=== PATIENT | female | born 1990 | race Caucasian/White ===

== ENCOUNTER 2019-01-03 15:50 | Emergency (ER) | payer SELFPAY ==
[~2019-01-03] VITALS: Ht 162.6 cm; Wt 104.3 kg
[2019-01-03 15:55] VITALS: BP 136/87
--- NOTE | 2019-01-03 15:58 | NUR ---
PT TO ER BED 3
--- NOTE | 2019-01-03 16:13 | NUR ---
PT C/O INTERMITTENT EPIGASTRIC PAIN, NAUSEA WITH VOMITING X 1 TIME, LOWER GRADE OF FEVER, CHILLS, AND SWEATINGS SINCE THIS MORNING AT 3 AM. PT ALSO STATES HAVING CONSTIPATION FOR 3 DAYS AND ABDOMINAL CRAMPING WHILE URINATING FOR ONE WEEK. DENIES DIARRHEA; SKIN IS PINK/WARM/DRY; AAOX4 WITH EVEN AND STEADY GAIT; PT DENIES ANY FEVER, CP, SOB, OR COUGH AT THIS TIME; PATIENT STATES PEIGASTRIC PAIN OF 5/10 AT THIS TIME; VSS; PATIENT POSITIONED FOR COMFORT; HOB ELEVATED; BEDRAILS UP X1; BED DOWN. ER MD MADE AWARE OF PT STATUS.
[2019-01-03] MEDS ORDERED: ONDANSETRON 4 MG ODT PO ONE (16:20)
[2019-01-03] MEDS ORDERED: DICYCLOMINE HCL LIQUID 20 MG, ALUMINUM HYD/MAG/SIMETHICONE 30 ML, LIDOCAINE VISCOUS 2% ... PO ONE ×3 (16:20)
[2019-01-03 16:43] LABS: BASOPHILS % (AUTO) 0.2 % (0.0-2.0); EOSINOPHILS # (AUTO) 0.1 K/uL (0-0.4); EOSINOPHILS % (AUTO) 0.5 % (0.0-4.0); HEMATOCRIT 40.9 % (36-48); HEMOGLOBIN 13.5 g/dL (12.0-16.0); LYMPHOCYTES # (AUTO) 0.7 K/uL (2.5-16.5); LYMPHOCYTES % (AUTO) 6.1 % (20.5-51.1); MEAN CORPUSCULAR HEMOGLOBIN 29 pg (27-31); MEAN CORPUSCULAR HGB CONC 33 g/dL (33-37); MEAN CORPUSCULAR VOLUME 86.4 fL (80-94); MONOCYTES # (AUTO) 0.3 K/uL (0.8-1.0); MONOCYTES % (AUTO) 2.8 % (1.7-9.3); NEUTROPHILS # (AUTO) 10.6 K/uL (1.8-7.7); NEUTROPHILS % (AUTO) 90.4 % (42.2-75.2); PLATELET COUNT (AUTO) 238 K/uL (140-450); RED BLOOD CELL COUNT(AUTO) 4.73 MIL/uL (4.20-5.40); RED CELL DISTRIBUTION WIDTH 13.2 % (11.6-13.7); WHITE BLOOD COUNT (AUTO) 11.7 K/uL (4.8-10.8)
[2019-01-03 16:47] LABS: APPEARANCE,URINE HAZY (CLEAR); BILIRUBIN,URINE NEGATIVE (NEGATIVE); BLOOD, URINE NEGATIVE (NEGATIVE); COLOR,URINE YELLOW (YELLOW); LEUKOCYTE ESTERASE ,URINE 1+ (NEGATIVE); NITRITE, URINE NEGATIVE (NEGATIVE); PH,URINE 8.5 (5.0-9.0); UGLUCOSE NEGATIVE (NEGATIVE)
[2019-01-03 16:54] LABS: RBC,URINE 0-5 /HPF (0-5); WBC,URINE TOO MANY TO COUNT /HPF (0-5)
[2019-01-03 17:01] LABS: ALBUMIN 3.7 g/dL (3.4-5.0); ANION GAP 13.2 (8-16); CREATININE 0.8 mg/dL (0.6-1.3); POTASSIUM 4.2 mmol/L (3.5-5.1); TOTAL BILIRUBIN 0.7 mg/dL (0.0-1.0)
[2019-01-03 17:26] VITALS: BP 106/62
--- NOTE | 2019-01-03 17:27 | NUR ---
Patient discharged with v/s stable. Written and verbal after care instructions given and explained. Patient alert, oriented and verbalized understanding of instructions. Ambulatory with steady gait. All questions addressed prior to discharge. ID band removed. Patient advised to follow up with PMD. Rx of Nitrofurantoin, Miralax, Phenazopyridine, Tylenol and Bentyl given. Patient educated on indication of medication including possible reaction and side effects. Opportunity to ask questions provided and answered.
== END 2019-01-03 17:27 | disposition home or self-care (01) ==
LOC: MED 15:50
DX: N39.0 Urinary tract infection, site not specified (principal)
CPT/HCPCS: 36415; 80053; 81001; 81025; 83690; 85025; 87086; 87186; 99283; Q0162

== ENCOUNTER 2019-12-30 02:43 | Emergency (ER) | payer SELFPAY ==
[~2019-12-30] VITALS: Ht 160 cm; Wt 104.3 kg
[2019-12-30 02:50] VITALS: BP 120/73
--- NOTE | 2019-12-30 02:53 | NUR ---
PT AMBULATED TO BED 07 WITH STEADY GAIT.
--- NOTE | 2019-12-30 03:00 | NUR ---
Dr. Boykin examining patient.
--- NOTE | 2019-12-30 03:00 | NUR ---
29 YEAR OLD FEMALE COMPLAINS OF UPPER EPIGASTRIC PAIN X 30MINS. PT STATES THAT THE PAIN IS STARTING TO GO AWAY BY ITSELF, BUT IT WAS 10/10 AND RADIATED TO BACK. PT STATES SHE TOOK 3 ASPIRINS, DOES NOT KNOW DOSE. PT DENIES N/V/D OR BLOOD IN STOOL OR PROBLEMS WITH URINATION/DEFECATION. PT AOX4, BREATHING EVEN AND UNLABORED, SKIN WARM AND DRY. BED IN LOWEST POSITION, LOCKED, BED RAIL UPX1. PMH - DENIES ALLERGIES - NKA
[2019-12-30] MEDS ORDERED: PANTOPRAZOLE 40 MG INJ VIAL IVP ONE (03:05)
[2019-12-30 03:35] VITALS: BP 116/55
--- NOTE | 2019-12-30 03:35 | NUR ---
Patient discharged with v/s stable. Written and verbal after care instructions about gastroesophageal reflex disease and its diet given and explained. Patient alert, oriented and verbalized understanding of instructions. Ambulatory with steady gait. All questions addressed prior to discharge. ID band removed. Patient advised to follow up with PMD. Rx of Protonix given. Patient educated on indication of medication including possible reaction and side effects. Opportunity to ask questions provided and answered.
== END 2019-12-30 03:35 | disposition home or self-care (01) ==
LOC: MED 02:43
DX: K29.70 Gastritis, unspecified, without bleeding (principal)
CPT/HCPCS: 81002; 81025; 96374; 99283; C9113

== ENCOUNTER 2021-12-03 06:10 | Emergency (ER) | payer OTHER ==
[~2021-12-03] VITALS: Ht 160 cm; Wt 97.1 kg
[2021-12-03 06:13] VITALS: BP 132/70
[2021-12-03] MEDS ORDERED: ACETAMINOPHEN EXTRA STRENGTH 500 MG TAB PO ONE (06:20)
[2021-12-03] MEDS ORDERED: FAMOTIDINE 20 MG TAB PO ONE (06:20)
[2021-12-03] MEDS ORDERED: ONDANSETRON 4 MG ODT PO ONE (06:20)
--- NOTE | 2021-12-03 06:20 | NUR ---
MD TORRES ASSESSING PATIENT
--- NOTE | 2021-12-03 06:20 | NUR ---
Patient ambulated to bed 3.
--- NOTE | 2021-12-03 06:22 | NUR ---
PATIENT AMBULATED TO THE AND BACK TO BED 3
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
[2021-12-03 06:44] LABS: BASOPHILS % (AUTO) 0.5 % (0.0-2.0); EOSINOPHILS # (AUTO) 0.2 K/uL (0-0.4); EOSINOPHILS % (AUTO) 1.6 % (0.0-4.0); HEMATOCRIT 41.3 % (36-48); HEMOGLOBIN 14.1 g/dL (12.0-16.0); LYMPHOCYTES # (AUTO) 2.2 K/uL (2.5-16.5); LYMPHOCYTES % (AUTO) 22.8 % (20.5-51.1); MEAN CORPUSCULAR HEMOGLOBIN 30 pg (27-31); MEAN CORPUSCULAR HGB CONC 34 g/dL (33-37); MEAN CORPUSCULAR VOLUME 88.1 fL (80-94); MONOCYTES # (AUTO) 0.5 K/uL (0.8-1.0); NEUTROPHILS # (AUTO) 6.8 K/uL (1.8-7.7); NEUTROPHILS % (AUTO) 70.1 % (42.2-75.2); PLATELET COUNT (AUTO) 234 K/uL (140-450); RED BLOOD CELL COUNT(AUTO) 4.69 MIL/uL (4.20-5.40); RED CELL DISTRIBUTION WIDTH 13.5 % (11.6-13.7); WHITE BLOOD COUNT (AUTO) 9.6 K/uL (4.8-10.8)
--- NOTE | 2021-12-03 06:45 | NUR ---
US AT BEDSIDE
[2021-12-03 06:49] LABS: APPEARANCE,URINE CLEAR (CLEAR); BILIRUBIN,URINE 1+ (NEGATIVE); BLOOD, URINE 3+ (NEGATIVE); COLOR,URINE ORANGE (YELLOW); LEUKOCYTE ESTERASE ,URINE 1+ (NEGATIVE); NITRITE, URINE NEGATIVE (NEGATIVE); PH,URINE 6.5 (5.0-9.0); UGLUCOSE NEGATIVE (NEGATIVE)
[2021-12-03 06:55] LABS: ANION GAP 9.6 (8-16); CARBON DIOXIDE 26.3 mmol/L (21-32); CREATININE 0.8 mg/dL (0.6-1.3); POTASSIUM 3.9 mmol/L (3.5-5.1); TOTAL BILIRUBIN 0.7 mg/dL (0.0-1.0)
[2021-12-03 07:13] LABS: OTHER CASTS, URINE None Seen /LPF (None Seen)
--- NOTE | 2021-12-03 07:25 | NUR ---
Pt report given to KASEY Duff. Transfer of care at this time.
--- NOTE | 2021-12-03 07:29 | NUR ---
RECEIVED REPORT FROM CELESTINO LUX. ASSUMED CARE AT THIS TIME.
--- NOTE | 2021-12-03 08:15 | NUR ---
PATIENT APPEARS TO BE RESTING IN BED. REPORTS ABDOMINAL PAIN HAS RESOLVED, ALL NEEDS MET AT THIS TIME, WILL CONTINUE TO MONITOR.
[2021-12-03] MEDS ORDERED: ACET-10509 PO (09:45)
[2021-12-03] MEDS ORDERED: CEPH-588 PO (09:45)
[2021-12-03 09:56] VITALS: BP 124/65
--- NOTE | 2021-12-03 09:56 | NUR ---
Patient discharged with v/s stable. Written and verbal after care instructions ABOUT THREATENED MISCARRIAGE, GASTRITIS AND UTI given and explained. Patient alert, oriented and verbalized understanding of instructions. Ambulatory with steady gait. All questions addressed prior to discharge. ID band removed. Patient advised to follow up with PMD. Rx of KEFLEX AND TYLENOL EXTRA STRENGTH given. Patient educated on indication of medication including possible reaction and side effects. Opportunity to ask questions provided and answered.
--- NOTE | 2021-12-05 18:48 | NUR ---
LATE ENTRY. RECEIVED POSITIVE URINE CULTURE RESULT. REVIEWED BY DR TRAN. PT PRESENT IN ER AT THIS TIME, ERMD MADE AWARE. TREATMENT APPROPRIATE. LOG IN BINDER
== END 2021-12-03 09:56 | disposition home or self-care (01) ==
LOC: MED 06:10
DX: O20.0 Threatened abortion (principal); O23.91 Unspecified genitourinary tract infection in pregnancy, first trimester; R82.71 Bacteriuria; Z3A.01 Less than 8 weeks gestation of pregnancy; Z90.49 Acquired absence of other specified parts of digestive tract; Z79.2 Long term (current) use of antibiotics; Z79.899 Other long term (current) drug therapy
CPT/HCPCS: 36415; 76801; 80053; 81001; 81025; 83690; 84702; 85025; 86900; 86901; 87086; 99284; Q0092; Q0162

== ENCOUNTER 2021-12-05 17:22 | Emergency (ER) | payer OTHER ==
[~2021-12-05] VITALS: Ht 160 cm; Wt 95.7 kg
[~2021-12-05 17:22] MED LIST: ACET-10509 PO; CEPH-588 PO
[2021-12-05 17:29] VITALS: BP 122/80
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
--- NOTE | 2021-12-05 17:59 | NUR ---
URINE WALKED TO LAB. HANDED TO JAKE
--- NOTE | 2021-12-05 18:02 | NUR ---
DR HICKMAN AT BEDSIDE FOR EVALUATION
[2021-12-05 18:04] LABS: APPEARANCE,URINE SL CLOUDY (CLEAR); BILIRUBIN,URINE NEGATIVE (NEGATIVE); BLOOD, URINE 3+ (NEGATIVE); COLOR,URINE RED (YELLOW); LEUKOCYTE ESTERASE ,URINE 1+ (NEGATIVE); NITRITE, URINE NEGATIVE (NEGATIVE); PH,URINE 5.5 (5.0-9.0); UGLUCOSE NEGATIVE (NEGATIVE)
--- NOTE | 2021-12-05 18:05 | NUR ---
LAB AT BEDSIDE
[2021-12-05 18:15] LABS: BASOPHILS % (AUTO) 0.5 % (0.0-2.0); EOSINOPHILS # (AUTO) 0.2 K/uL (0-0.4); EOSINOPHILS % (AUTO) 2.2 % (0.0-4.0); HEMOGLOBIN 13.9 g/dL (12.0-16.0); LYMPHOCYTES # (AUTO) 1.8 K/uL (2.5-16.5); MEAN CORPUSCULAR HEMOGLOBIN 30 pg (27-31); MEAN CORPUSCULAR HGB CONC 34 g/dL (33-37); MEAN CORPUSCULAR VOLUME 88.4 fL (80-94); MONOCYTES # (AUTO) 0.4 K/uL (0.8-1.0); MONOCYTES % (AUTO) 4.6 % (1.7-9.3); NEUTROPHILS # (AUTO) 6.6 K/uL (1.8-7.7); NEUTROPHILS % (AUTO) 72.7 % (42.2-75.2); PLATELET COUNT (AUTO) 249 K/uL (140-450); RED BLOOD CELL COUNT(AUTO) 4.64 MIL/uL (4.20-5.40); RED CELL DISTRIBUTION WIDTH 13.4 % (11.6-13.7); WHITE BLOOD COUNT (AUTO) 9.1 K/uL (4.8-10.8)
--- NOTE | 2021-12-05 19:07 | NUR ---
SY[facility]NEY AT BEDSIDE
[2021-12-05 19:11] LABS: RBC,URINE 80-100 /HPF (0-5)
--- NOTE | 2021-12-05 19:11 | NUR ---
Pt report given to ALIX PARKS. Transfer of care at this time.
--- NOTE | 2021-12-05 20:08 | NUR ---
ER MD AT BEDSIDE DISCUSSING PT RESULTS
[2021-12-05 20:27] VITALS: BP 126/80
--- NOTE | 2021-12-05 20:28 | NUR ---
Patient discharged with v/s stable. Written and verbal after care instructions given and explained. Patient verbalized understanding. Ambulatory with steady gait. All questions addressed prior to discharge. Advised to follow up with PMD.
== END 2021-12-05 20:28 | disposition home or self-care (01) ==
LOC: MED 17:22
DX: O20.0 Threatened abortion (principal); Z3A.01 Less than 8 weeks gestation of pregnancy
CPT/HCPCS: 36415; 76817; 81001; 81025; 84702; 85025; 87086; 99284; Q0092